=== PATIENT | female | born 1945 ===

== ENCOUNTER 2020-12-29 06:12 | Day surgery (SDC) | payer OTHER ==
[~2020-12-29 06:12] MED LIST: AVAPRO300 MG PO; GABAPEN PO; HYDROCHLOROTH12.5 MG PO; LIPITO PO; NAPR500T14 PO; PREDNISONE; PROTONIX40 M1 PO; SINGULAIR10 MG PO; TOPROL XL25 M1 PO; XYZAL5 MG PO; [UNRECOGNIZED DRUG - OTHER]
[2020-12-29] MEDS ORDERED: MACROBID 100 M100 MG PO (10:13)
[2020-12-29] MEDS ORDERED: ULTRACET PO (10:14)
== END 2020-12-29 17:35 | disposition home or self-care (01) ==
LOC: CIR.AMB 06:12
PROVIDERS: ATTEND Obstetrics & Gynecology Gynecology
DX: N81.3 Complete uterovaginal prolapse (principal); Z20.822 Contact with and (suspected) exposure to COVID-19